=== PATIENT | male | born 1965 | race Caucasian/White ===

== ENCOUNTER → 2018-10-08 | Day surgery (SDC) | payer MEDICAID ==
[~2018-10-08] VITALS: Ht 180.3 cm; Wt 72.7 kg
[~2018-10-08] MED LIST: ALBUTEROL SULFATE 2.5 MG/0.5 ML NEB SOLUTION NEB ONE; BECL8.7A6 IH; BENZOCAINE 20% 50 MCG/SPRAY 57 GM TP ONE; COMBISP IH; ESCI20TA PO; FLUT44HFA IH; FentaNYL CITRATE-PF 100 MCG/2 ML VIAL ONE; IPRA4AER IH; LIDOCAINE 2% 30 ML JELLY TP ONE; MIDAZOLAM HCL 2 MG/2 ML VIAL ONE; MOME13HF2 IH; MONT10TA21 PO; MethylPREDNISolone SOD SUCC 125 MG/2 ML VIAL IVP ONE; MethylPREDNISolone SOD SUCC 125 MG/2 ML VIAL ONE; OMEP10 PO; OXYGEN THERAPY IH SCH; PRED10 PO; SODIUM CHLORIDE 0.9% 0 ML IV ONE; SODIUM CHLORIDE 0.9% 1,000 ML IV ONE; SYMB8060 IH
== END | disposition home or self-care (01) ==
LOC: SURGERY 07:24
PROVIDERS: ATTEND Internal Medicine Critical Care Medicine
DX: J38.4 Edema of larynx (principal); B37.0 Candidal stomatitis; K21.9 Gastro-esophageal reflux disease without esophagitis; J44.9 Chronic obstructive pulmonary disease, unspecified; Z98.890 Other specified postprocedural states
CPT/HCPCS: 31623; 31624; 71045; 87015; 87070; 87101; 87205; 87206; 87220; 88108; 88312; J2250; J2930; J3010; J7030